=== PATIENT | female | born 1980 | race Caucasian/White ===

== ENCOUNTER 2018-02-21 00:03 | Emergency (ER) | payer BC, SELFPAY ==
[2018-02-21] MEDS ORDERED: TETRACAINE HCL 0.5% 2ML OPTH ONE (00:56)
[2018-02-21] MEDS ORDERED: EYE WASH SOLNT 118 ML BTL ONE (00:56)
[2018-02-21] MEDS ORDERED: FLUORESCEIN SODIUM 0.6 MG/WRAP ONE (00:57)
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
--- NOTE | 2018-02-21 08:47 | RAD REPORT ---
EXAM DESCRIPTION: CT - Head Brain Wo Cont - 02/21/2018 5:40 am CLINICAL HISTORY: Trauma with head injury and headache COMPARISON: None. TECHNIQUE: Computed axial tomography of the head was obtained. IV contrast was not requested. Prelim inary report generated by virtual radiologic a review prior to dictation All CT scans are performed using dose optimization technique as appropriate and may include automated exposure control or mA/KV adjustment according to patient size. FINDINGS: An intracranial bleed is not seen . The ventricles are normal in caliber. No extra-axial fluid collection is noted. A left orbital floor depressed blowout fracture is seen with herniation of fat into the left maxillar y sinus. Blood is present the left maxillary sinus IMPRESSION: No acute intracranial abnormality is seen. If patient's symptoms persist MRI of the bra in would be recommended. Left orbital floor blow-out fracture only partially included in the field of view
== END 2018-02-21 02:35 | disposition home or self-care (01) ==
LOC: ER 00:03
DX: S02.30XA Fracture of orbital floor, unspecified side, initial encounter for closed fracture (principal); S05.00XA Injury of conjunctiva and corneal abrasion without foreign body, unspecified eye, initial encounter; Y04.2XXA Assault by strike against or bumped into by another person, initial encounter; Y93.9 Activity, unspecified; Y92.9 Unspecified place or not applicable; F31.9 Bipolar disorder, unspecified; F32.9 Major depressive disorder, single episode, unspecified
CPT/HCPCS: 70450; 99285

== ENCOUNTER 2018-02-22 23:15 | Emergency (ER) | payer SELFPAY ==
[2018-02-23] MEDS ORDERED: NA CHLORIDE 0.9% 1,000 ML ONE (00:03)
[2018-02-23] MEDS ORDERED: ONDANSETRON 4 MG/2 ML VIAL ONE (00:27)
[2018-02-23 00:38] LABS: Absolute Lymphocytes (CBC) 1.5 K/uL (0.7-4.9); Absolute Monocytes 0.8 K/uL (0.1-1.3); Basophils % 0.3 % (0-1.3); Eosinophils % 0.6 % (0-4.4); MCH 36.4 pg (27.0-35.0); MCV 104.5 fL (80-100); Monocytes % 4.9 % (3.3-12.3); RBC Red Blood Cell Count 3.35 M/uL (3.86-4.86)
[2018-02-23 00:49] LABS: ALT/SGPT 26 U/L (12-78); AST/SGOT 26 U/L (15-37); Albumin 3.6 g/dL (3.4-5.0); Alkaline Phosphatase 106 U/L (45-117); BUN Blood Urea Nitrogen 10 mg/dL (7-18); Bicarbonate 22 mmol/L (21-32); Bilirubin Direct 0.1 mg/dL (0-0.2); Bilirubin Total 0.3 mg/dL (0.2-1.0); Glucose Level 110 mg/dL (74-106); Magnesium 1.8 mg/dL (1.8-2.4); NT PRO-BNP 76 pg/mL (<125); Potassium 3.3 mmol/L (3.5-5.1); Protein, Total 7.5 g/dL (6.4-8.2); Sodium Level 136 mmol/L (136-145); Troponin (Emerg Dept Use Only) < 0.02 ng/mL (0.0-0.045)
[2018-02-23 01:06] LABS: Blood Morphology Comment NOT SEEN (NOT SEEN); Platelet Estimate ADEQ
[2018-02-23 01:11] LABS: Protime INR 0.95
[2018-02-23] MEDS ORDERED: CEFTRIAXONE/SWI 1gm 1 GM/10 ML SYR ONE (04:25)
[2018-02-23] MEDS ORDERED: AZITHROMYCIN 500 MG/250 ML BAG ONE (04:26)
[2018-02-23] MEDS ORDERED: IBUPROFEN 400 MG TAB ONE (05:23)
--- NOTE | 2018-02-23 05:24 | ER ---
Nurse's Notes [facility] Name: Catalina Morton Age: 37 yrs Sex: Female : 1980 Arrival Date: 02/22/2018 Time: 23:25 Bed 17 Private MD: Diagnosis: Pneumonia Presentation: 02/22 23:34 Presenting complaint: Patient states: Was going to bed and began having severe pain to lp1 left rib area radiating to back; States feeling like she can't breathe, nausea related to pain. Transition of care: patient was not received from another setting of care. Onset of symptoms was February 22, 2018 at 23:00. Risk Assessment: Do you want to hurt yourself or someone else? Patient reports no desire to harm self or others. Initial Sepsis Screen: Does the patient meet any 2 criteria? No. Patient's initial sepsis screen is negative. Does the patient have a suspected source of infection? No. Patient's initial sepsis screen is negative. Care prior to arrival: None. 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 - Social history:: Smoking status: Patient uses tobacco products, smokes one pack cigarettes per day. - Ebola Screening: : No symptoms or risks identified at this time. Screenin:41 Abuse screen: Denies threats or abuse. Denies injuries from another. Nutritional lp1 screening: No deficits noted. Tuberculosis screening: No symptoms or risk factors identified. Fall Risk None identified. Assessment: 23:43 General: Appears uncomfortable, Behavior is anxious, Smells of alcohol. Pain: Complains lp1 of pain in diaphragm, left lateral posterior chest and left lateral anterior chest Pain currently is 9 out of 10 on a pain scale. Quality of pain is described as sharp, stabbing, Pain began 30 min ago. Neuro: Level of Consciousness is awake, alert, obeys commands, Oriented to person, place, time, situation. Cardiovascular: Patient's skin is warm and dry. Respiratory: Reports shortness of breath related to pain Airway is patent Respiratory effort is even, unlabored, Respiratory pattern is regular, Breath sounds are clear bilaterally. Onset: The symptoms/episode began/occurred just prior to arrival, the patient has mild shortness of breath. GI: Reports nausea. : No signs and/or symptoms were reported regarding the genitourinary system. EENT: No signs and/or symptoms were reported regarding the EENT system. Derm: Skin is pink, warm \T\ dry. Musculoskeletal: Circulation, motion, and sensation intact. 02/23 00:45 Reassessment: Patient vomiting at this time; Provider notified. lp1 01:35 Reassessment: Patient returned from CT, notified of infiltration of IV during contrast lp1 infusion; swelling noted above right breast at IV site; warm compress applied. 02:30 Reassessment: Patient appears in no apparent distress at this time. Patient and/or lp1 family updated on plan of care and expected duration. Pain level reassessed. Patient is alert, oriented x 3, equal unlabored respirations, skin warm/dry/pink. 03:00 Reassessment: Provider at bedside to discuss results with patient and significant other.lp1 04:00 Reassessment: Patient appears in no apparent distress at this time. Patient and/or lp1 family updated on plan of care and expected duration. Pain level reassessed. Patient is alert, oriented x 3, equal unlabored respirations, skin warm/dry/pink. Patient states feeling better. 05:00 Reassessment: Patient appears in no apparent distress at this time. Patient is lp1 alert/active/playful, equal unlabored respirations, skin warm/dry/pink. Patient states feeling better. 05:45 Reassessment: Patient is alert, oriented x 3, equal unlabored respirations, skin lp1 warm/dry/pink. Patient denies pain at this time. Patient states feeling better. Patient states symptoms have improved. Vital Signs: 02/22 23:39 BP 130 / 84; Pulse 129; Resp 18; Temp 98.4; Pulse Ox 100% on R/A; Weight 90.72 kg; lp1 Height 5 ft. 8 in. (172.72 cm); Pain 9/10; 02/23 00:30 BP 127 / 85; Pulse 118; Resp 18; Pulse Ox 98% on R/A; lp1 01:45 BP 130 / 85; Pulse 116; Resp 18; Pulse Ox 100% on R/A; lp1 02:45 BP 125 / 75; Pulse 111; Resp 18; Pulse Ox 96% on R/A; lp1 03:30 BP 120 / 80; Pulse 112; Resp 18; Pulse Ox 97% on R/A; lp1 04:30 BP 96 / 75; Pulse 112; Resp 16; Pulse Ox 98% on R/A; lp1 05:10 BP 105 / 68; Pulse 115; Resp 18; Temp 100.1(O); Pulse Ox 98% on R/A; lp1 05:44 BP 107 / 71; Pulse 108; Resp 16; Pulse Ox 100% on R/A; lp1 02/22 23:39 Body Mass Index 30.41 (90.72 kg, 172.72 cm) lp1 ED Course: 02/22 23:25 Patient arrived in ED. es 23:32 Edi Emmanuel PA is PHCP. jmm 23:32 Julian Scherer MD is Attending Physician. jmm 23:33 Radha Hampton, DUONG is Primary Nurse. lp1 23:35 Triage completed. lp1 23:40 Arm band placed on right wrist. lp1 23:44 Patient has correct armband on for positive identification. Placed in gown. Pulse ox lp1 on. NIBP on. 23:58 X-ray completed. Portable x-ray completed in exam room. Patient tolerated procedure sg4 well. 02/23 00:15 Radiology exam delayed due to lab results not completed at this time. (BUN/Creatinine) kw1 test not completed at this time. 00:30 Inserted saline lock: 22 gauge in right antecubital area, using aseptic technique. jb4 Missed attempt(s): 22 gauge in left antecubital area. 24 gauge in left antecubital area. 00:30 Initial lab(s) drawn, by ED staff, by cheesemaking laborer. jb4 00:57 XRAY Chest (1 view) In Process Unspecified. EDMS 01:00 Inserted saline lock: 22 gauge in right upper arm, using aseptic technique. Blood aa1 collected. 01:[address] via wheelchair. kw1 01:34 Patient moved back from CT. kw1 01:42 CT Chest For PE Angio In Process Unspecified. EDMS 01:42 22g to R upper arm DC'd due to infiltration. lp1 03:31 Inserted 18 gauge 10 cm midline to left upper basilic vein on first attempt. Line with fc good blood return and flushes well. 04:49 No provider procedures requiring assistance completed. lp1 Administered Medications: 01:05 Drug: Zofran 4 mg Route: IVP; Site: right upper arm; lp1 01:39 Follow up: Response: Nausea is decreased lp1 03:35 Drug: NS 0.9% 1000 ml Route: IV; Rate: 1 bolus; Site: left upper arm; lp1 05:28 Follow up: IV Status: Completed infusion; IV Intake: 1000ml lp1 04:30 Drug: Rocephin - (cefTRIAXone) 1 grams Route: IVPB; Infused Over: 30 mins; Site: left lp1 upper arm; 05:00 Follow up: IV Status: Completed infusion; IV Intake: 10ml lp1 04:30 Drug: AZITHromycin 500 mg Route: IVPB; Infused Over: 1 hrs; Site: left upper arm; lp1 05:45 Follow up: IV Status: Completed infusion; IV Intake: 250ml lp1 05:25 Drug: Motrin 800 mg Route: PO; lp1 05:47 Follow up: Response: No adverse reaction; Medication administered at discharge. lp1 Intake: 05:00 IV: 10ml; Total: 10ml. lp1 05:28 IV: 1000ml; Total: 1010ml. lp1 05:45 IV: 250ml; Total: 1260ml. lp1 Outcome: 05:23 Discharge ordered by . rn 05:47 Discharged to home ambulatory, with significant other. lp1 05:47 Condition: good 05:47 Discharge instructions given to patient, significant other, Instructed on discharge instructions, follow up and referral plans. medication usage, Demonstrated understanding of instructions, follow-up care, medications, Prescriptions given X 2. 05:48 Patient left the ED. lp1 Signatures: Dispatcher [employer] EDLilo Alexandre RN RN aa1 Edi Emmanuel PA PA jmm Salyer, Edna es Chretien, Felicia, RN RN fc Julian Scherer MD MD rn Pena, Laura, RN RN lp1 Yonas Rodriguse RN RN jb4 Zandra Bustillos 1 Emily Lucero 4 Leonard Donis, DUONG RN rr5 Corrections: (The following items were deleted from the chart) 02/22 23:45 23:43 Respiratory: Airway is patent Respiratory effort is even, unlabored, Respiratory lp1 pattern is regular, Breath sounds are clear bilaterally. lp1 02/23 01:11 01:00 Inserted saline lock: 22 gauge in right upper arm, using aseptic technique. Blood aa1 collected. rr5
--- NOTE | 2018-02-23 05:24 | EDPHYS ---
Physician Documentation [facility] Name: Catalina Morton Age: 37 yrs Sex: Female : 1980 Arrival Date: 02/22/2018 Time: 23:25 Bed 17 Private MD: ED Physician Juilan Scherer HPI: 02/22 23:40 This 37 yrs old Female presents to ER via Wheelchair with complaints of jmm Breathing Difficulty. 23:40 The patient has shortness of breath at rest. Onset: The symptoms/episode began/occurred jmm acutely, just prior to arrival. Duration: The symptoms are continuous. The patient's shortness of breath is aggravated by nothing, is alleviated by nothing. This is a 37 year old female that presents to the ED with left sided rib pain and shortness of breath which awoke her from sleep just prior to arrival. Patient admits to hemoptysis. Patient was recently evaluated and diagnosed with an orbital fracture. . HORSER UP: 23:40 LMP N/A - Irregular menses lp1 Historical: - Allergies: 23:41 No Known Allergies; lp1 - Home Meds: 23:41 Celexa 20 mg Oral tab 1 tab once daily [Active]; lorazepam 1 mg Oral tab 1 tab 3 times lp1 per day [Active]; Saphris 40 mg twice a day [Active]; Lamictal Oral [Active]; - PMHx: 23:41 Anxiety; Bipolar disorder; Depression; insomnia; lp1 - PSHx: 23:41 Hip replacement; lp1 - Immunization history:: Adult Immunizations up to date. - Social history:: Smoking status: Patient uses tobacco products, smokes one pack cigarettes per day. - Ebola Screening: : No symptoms or risks identified at this time. ROS: 23:40 Constitutional: Negative for fever, chills, and weight loss. jmm 23:40 Cardiovascular: Positive for chest pain. 23:40 Respiratory: Positive for cough. 23:40 Back: Positive for pain at rest. 23:40 All other systems are negative. Exam: 23:40 Constitutional: This is a well developed, well nourished patient who is awake, alert, jmm and in no acute distress. Head/Face: atraumatic. Eyes: EOMI, no conjunctival erythema appreciated ENT: Moist Mucus Membranes Neck: Trachea midline, Supple 23:40 Respiratory: Normal respirations, no respiratory distress appreciated Abdomen/GI: Non distended, soft Back: Normal ROM Skin: General appearance color normal MS/ Extremity: Moves all extremities, no obvious deformities appreciated, no edema noted to the lower extremities Neuro: Awake and alert, normal gait Psych: Behavior is normal, Mood is normal, Patient is cooperative and pleasant 23:40 Constitutional: The patient appears smells of alcohol. 23:40 Chest/axilla: Palpation: tenderness, that is moderate, of the left lateral posterior chest. Vital Signs: 23:39 BP 130 / 84; Pulse 129; Resp 18; Temp 98.4; Pulse Ox 100% on R/A; Weight 90.72 kg; lp1 Height 5 ft. 8 in. (172.72 cm); Pain 9/10; 02/23 00:30 BP 127 / 85; Pulse 118; Resp 18; Pulse Ox 98% on R/A; lp1 01:45 BP 130 / 85; Pulse 116; Resp 18; Pulse Ox 100% on R/A; lp1 02:45 BP 125 / 75; Pulse 111; Resp 18; Pulse Ox 96% on R/A; lp1 03:30 BP 120 / 80; Pulse 112; Resp 18; Pulse Ox 97% on R/A; lp1 04:30 BP 96 / 75; Pulse 112; Resp 16; Pulse Ox 98% on R/A; lp1 05:10 BP 105 / 68; Pulse 115; Resp 18; Temp 100.1(O); Pulse Ox 98% on R/A; lp1 05:44 BP 107 / 71; Pulse 108; Resp 16; Pulse Ox 100% on R/A; lp1 02/22 23:39 Body Mass Index 30.41 (90.72 kg, 172.72 cm) lp1 MDM: 02/22 23:39 Patient medically screened. [facility] 02/23 03:02 Data reviewed: vital signs, nurses notes. Transition of care: After a detail discussion rafaela of the patient's case, care is transferred to Julian Scherer MD. 05:18 Differential diagnosis: pneumonia, Pneumothorax pulmonary edema, Pulmonary Embolism. rn Counseling: I had a detailed discussion with the patient and/or guardian regarding: the historical points, exam findings, and any diagnostic results supporting the discharge/admit diagnosis, lab results, radiology results, the need for outpatient follow up, to return to the emergency department if symptoms worsen or persist or if there are any questions or concerns that arise at home. Response to treatment: the patient's symptoms have markedly improved after treatment. ED course: Pt improved, ct showed pneumonia, feels better, will dc home with abx. . 02/22 23:40 Order name: Basic Metabolic Panel; Complete Time: 00:54 [facility] 02/22 23:40 Order name: CBC with Diff; Complete Time: 01:46 [facility] 02/22 23:40 Order name: LFT's; Complete Time: 00:54 [facility] 02/22 23:40 Order name: Magnesium; Complete Time: 00:54 [facility] 02/22 23:40 Order name: NT PRO-BNP; Complete Time: 00:54 [facility] 02/22 23:40 Order name: PT-INR; Complete Time: 01:46 [facility] 02/22 23:40 Order name: Troponin (emerg Dept Use Only); Complete Time: 00:54 [facility] 02/22 23:40 Order name: XRAY Chest (1 view); Complete Time: 15:06 [facility] 02/22 23:40 Order name: ETOH Level; Complete Time: 00:54 [facility] 02/22 23:43 Order name: CT Chest For PE Angio; Complete Time: 15:06 [facility] 02/23 00:39 Order name: Manual Differential; Complete Time: 01:46 [facility] 02/23 02:43 Order name: Procalcitonin; Complete Time: 15:06 [facility] 02/23 02:43 Order name: Lactate; Complete Time: 04:28 [facility] 02/23 02:43 Order name: Blood Culture Adult (2) [facility] 02/22 23:40 Order name: EKG; Complete Time: 23:41 [facility] 02/22 23:40 Order name: Cardiac monitoring; Complete Time: 01:05 [facility] 02/22 23:40 Order name: EKG - Nurse/Tech; Complete Time: 00:54 [facility] 02/22 23:40 Order name: IV Saline Lock; Complete Time: 01:05 [facility] 02/22 23:40 Order name: Labs collected and sent; Complete Time: 01:05 [facility] 02/22 23:40 Order name: O2 Per Protocol; Complete Time: 23:46 [facility] 02/22 23:40 Order name: O2 Sat Monitoring; Complete Time: 23:46 [facility] Administered Medications: 01:05 Drug: Zofran 4 mg Route: IVP; Site: right upper arm; lp1 01:39 Follow up: Response: Nausea is decreased lp1 03:35 Drug: NS 0.9% 1000 ml Route: IV; Rate: 1 bolus; Site: left upper arm; lp1 05:28 Follow up: IV Status: Completed infusion; IV Intake: 1000ml lp1 04:30 Drug: Rocephin - (cefTRIAXone) 1 grams Route: IVPB; Infused Over: 30 mins; Site: left lp1 upper arm; 05:00 Follow up: IV Status: Completed infusion; IV Intake: 10ml lp1 04:30 Drug: AZITHromycin 500 mg Route: IVPB; Infused Over: 1 hrs; Site: left upper arm; lp1 05:45 Follow up: IV Status: Completed infusion; IV Intake: 250ml lp1 05:25 Drug: Motrin 800 mg Route: PO; lp1 05:47 Follow up: Response: No adverse reaction; Medication administered at discharge. lp1 Disposition: 06:40 Co-signature as Attending Physician, Julian Scherer MD. rn Disposition: 02/23/18 05:23 Discharged to Home. Impression: Pneumonia. - Condition is Stable. - Discharge Instructions: Dehydration, Adult, Community-Acquired Pneumonia, Adult. - Prescriptions for Augmentin 875- 125 mg Oral Tablet - take 1 tablet by ORAL route every 12 hours for 10 days; 20 tablet. Levaquin 500 mg Oral Tablet - take 1 tablet by ORAL route once daily for 7 days; 7 tablet. - Medication Reconciliation Form, Thank You Letter, Antibiotic Education, Prescription Opioid Use form. - Follow up: Private Physician; When: As needed; Reason: Recheck today's complaints, Re-evaluation by your physician. - Problem is new. - Symptoms have improved. Signatures: Dispatcher [employer] EDMS Edi Emmanuel PA PA jmm Nieto, Roman, MD MD rn Pena, Laura, RN RN lp1 Corrections: (The following items were deleted from the chart) 05:48 05:23 02/23/2018 05:23 Discharged to Home. Impression: Pneumonia. Condition is Stable. lp1 Forms are Medication Reconciliation Form, Thank You Letter, Antibiotic Education, Prescription Opioid Use. Follow up: Private Physician; When: As needed; Reason: Recheck today's complaints, Re-evaluation by your physician. Problem is new. Symptoms have improved. rn
--- NOTE | 2018-02-23 06:16 | EKG ---
Test Date: 2018-02-23 Test Time: 00:39:51 Marine Rigger: ARIANNA MEASUREMENT RESULTS: Intervals: Rate: 119 AR: 140 QRSD: 88 QT: 310 QTc: 436 [place]: P: 50 AR: 140 QRS: 85 T: 40 INTERPRETIVE STATEMENTS: Sinus tachycardia Otherwise normal ECG No previous ECG available for comparison Electronically Signed On 02-23-18 06:15:16 ADVERTISING ASSISTANT by Larry Edwards
--- NOTE | 2018-02-23 09:05 | RAD REPORT ---
EXAM DESCRIPTION: RAD - Chest Single View - 02/23/2018 12:57 am CLINICAL HISTORY: Left-sided chest pain, shortness of breath COMPARISON: August 12 TECHNIQUE: AP portable chest image was obtained 2354 hours . FINDINGS: Focal masslike consolidation is present in the lower left lung field. Bacterial pneumonia is the most likely etiology. No cavitation seen. Malignant mass would be unlikely given the patient a ge and clinical presentation. Heart and vasculature are normal. No measurable pleural effusion and no pneumothorax. No acute bony abnormality seen. No acute aortic findings suspected. IMPRESSION: Left lung base pneumonia.
--- NOTE | 2018-02-23 09:53 | RAD REPORT ---
EXAM DESCRIPTION: CT - Chest For Pe Angio - 02/23/2018 5:53 am CLINICAL HISTORY: Severe left-sided chest and rib pain radiating to the back A preliminary report was provided at the time of the study and reviewed prior to final report. COMPARISON: None. TECHNIQUE: Dynamically enhanced 3 mm thick images of the chest were obtained during administration o f approximately 150mL Isovue 370 IV contrast. Coronal and oblique MIP reconstruction images were gene rated and reviewed. Exam utilizes a protocol to evaluate the pulmonary arterial tree. All CT scans are performed using dose optimization technique as appropriate and may include automated exposure control or mA/KV adjustment according to patient size. FINDINGS: Pulmonary arterial tree opacification was suboptimal due to difficulty with contrast admin istration. Given the limitation, no pulmonary embolism is identified. Probability of pulmonary emboli sm is felt to be low given the additional findings that would explain patient's symptoms. The aorta as imaged shows no acute or suspicious finding. No pericardial thickening or effusion. Moderately large area of consolidation involves the left lower lobe. No cavitation or suspicious laverne d mass seen. There is patchy airspace disease in the lingula and scattered in the right lung field mi nimally. No pleural effusion or pleural thickening. No significant or suspicious pulmonary nodule. No suspicious mediastinal mass or lymphadenopathy. No hilar suspicious finding. No chest wall masses or abnormal axillary lymphadenopathy. IMPRESSION: Large consolidated pneumonia in the left lower lobe with patchy minimal lingula pneumoni a and right middle lobe pneumonia. Pulmonary arterial tree assessment was limited but no pulmonary emboli suspected.
== END 2018-02-23 05:48 | disposition home or self-care (01) ==
LOC: ER 23:15
DX: J18.9 Pneumonia, unspecified organism (principal); F17.210 Nicotine dependence, cigarettes, uncomplicated; F31.9 Bipolar disorder, unspecified; F41.9 Anxiety disorder, unspecified; Z79.899 Other long term (current) drug therapy
CPT/HCPCS: 36415; 71045; 71275; 80048; 80076; 80320; 83605; 83735; 83880; 84145; 84484; 85025; 85610; 87040; 93005; 96361; 96365; 96368; 96375; 99284; J0456; J0696; J2405; J7030; Q9967